=== PATIENT | male | born 1970 | race Caucasian/White ===

== ENCOUNTER 2022-08-22 20:32 | Emergency (ER) | payer MEDICAID, OTHER ==
[~2022-08-22] VITALS: Ht 190.5 cm; Wt 90.7 kg
--- NOTE | 2022-08-22 20:32 | NUR ---
Patient examine by physician upon arrival.
[2022-08-22] MEDS ORDERED: MIDAZOLAM HCL 5 MG/ML VIAL ONE (20:41)
[2022-08-22] MEDS ORDERED: MIDAZOLAM HCL 2 MG/2 ML VIAL IM ONE (20:45)
--- NOTE | 2022-08-22 20:45 | NUR ---
PT BIBA TO RM 2B EXPERIENCING ACTIVE SEIZURES. PT PLACED IN RM 2B, PLACED ON MONITOR.
[2022-08-22] MEDS ORDERED: LORAZEPAM 2 MG/1 ML VIAL ONE (21:06)
[2022-08-22] MEDS ORDERED: LORAZEPAM 2 MG/1 ML VIAL IM ONE (21:15)
[2022-08-22 21:24] LABS: HEMATOCRIT 40.6 % (36.7-47.1); MEAN CORPUSCULAR HEMOGLOBIN 30.5 uug (23.8-33.4); PLATELET COUNT (AUTO) 272 K/uL (152-348)
--- NOTE | 2022-08-22 21:27 | NUR ---
SBP 141/95 HR 95 100% saturation pt. now with less tremors remains diaphoretic. Will continue to monitor.
[2022-08-22 21:37] LABS: CREATININE 0.9 mg/dL (0.6-1.3); POTASSIUM 4.2 mmol/L (3.5-5.1)
[2022-08-22 21:43] LABS: BILIRUBIN,TOTAL 1.6 mg/dL (0.2-1.0); TOTAL PROTEIN, SERUM 7.3 g/dL (6.4-8.2)
[2022-08-22] MEDS ORDERED: CARB100I (22:17)
[2022-08-22] MEDS ORDERED: LEVE1000 (22:18)
--- NOTE | 2022-08-22 22:49 | NUR ---
HR of 87, RR 18, 115/56
--- NOTE | 2022-08-23 00:26 | NUR ---
Call [facility] to arrange transportation back to [facility] [id number] [facility]. and ETA of 40-50 min. received.
--- NOTE | 2022-08-23 01:17 | NUR ---
[place] professional in to pick-up pt. HR of 82, rr 17, sbp of 115/75. report given to Henry. [place] Patient left room [id number]. no c/of pain.
[2022-08-23 01:25] VITALS: O2SAT 100
== END 2022-08-23 01:33 | disposition home or self-care (01) ==
LOC: ER 20:32
DX: G25.9 Extrapyramidal and movement disorder, unspecified (principal); Z88.8 Allergy status to other drugs, medicaments and biological substances; Z79.899 Other long term (current) drug therapy
CPT/HCPCS: 99284; 80053; 82550; 85025; 36415; 96372 ×2; J2060; J2250; A4663

== ENCOUNTER 2022-09-20 14:53 | Emergency (ER) | payer MEDICAID ==
[~2022-09-20] VITALS: Ht 190.5 cm; Wt 90.7 kg
[~2022-09-20 14:53] MED LIST: CARB100I; LEVE1000
[2022-09-20] MEDS ORDERED: LEVE100023 PO (15:17)
[2022-09-20] MEDS ORDERED: ALPR0.255 PO (15:17)
[2022-09-20] MEDS ORDERED: IV NORMAL SALINE 1000 ML BAG IV ONE (15:30)
[2022-09-20 15:45] LABS: BASOPHILS % (AUTO) 0.4 % (0.0-2.0); EOSINOPHILS # (AUTO) 0.2 K/uL (0.0-0.7); EOSINOPHILS % (AUTO) 3.1 % (0.0-7.0); HEMATOCRIT 36.8 % (36.7-47.1); HEMOGLOBIN 12.3 g/dL (12.5-16.3); LYMPHOCYTES # (AUTO) 0.8 K/uL (0.8-4.8); LYMPHOCYTES % (AUTO) 13.1 % (20.5-51.5); MEAN CORPUSCULAR HEMOGLOBIN 30.4 uug (23.8-33.4); MEAN CORPUSCULAR HGB CONC 34 g/dL (32.5-36.3); MEAN CORPUSCULAR VOLUME 90.9 fL (73.0-96.2); MONOCYTES # (AUTO) 0.5 K/uL (0.1-1.30); MONOCYTES % (AUTO) 8.5 % (0.0-11.0); NEUTROPHILS # (AUTO) 4.7 K/uL (1.8-8.9); NEUTROPHILS % (AUTO) 74.9 % (38.5-71.5); PLATELET COUNT (AUTO) 221 K/uL (152-348); RED BLOOD CELL COUNT(AUTO) 4.05 MIL/uL (4.06-5.63); RED CELL DISTRIBUTION WIDTH 14.5 % (12.1-16.2); WHITE BLOOD COUNT (AUTO) 6.3 K/uL (3.6-10.2)
[2022-09-20 15:59] LABS: DIFFERENTIAL COMMENT 1
[2022-09-20 16:02] LABS: CALCIUM 8.6 mg/dL (8.5-10.1); CARBON DIOXIDE 29 mmol/L (21-32); CHLORIDE 104 mmol/L (98-107); CREATININE 0.6 mg/dL (0.6-1.3); GLUCOSE 96 mg/dL (74-106); POTASSIUM 3.6 mmol/L (3.5-5.1); SODIUM SERUM 141 mmol/L (136-145); UREA NITROGEN, BLOOD 13 mg/dL (7-18)
[2022-09-20 16:16] LABS: ALANINE AMINOTRANSFERASE 9 U/L (16-63); ALBUMIN 3.5 g/dL (3.4-5.0); ALKALINE PHOSPHATASE 121 U/L (50-136); ASPARTATE AMINOTRANSFERASE 20 U/L (15-37); BILIRUBIN,DIRECT 0.2 mg/dL (0.0-0.2); BILIRUBIN,TOTAL 1.1 mg/dL (0.2-1.0); NT-PRO BNP 65 pg/mL (0-125); TOTAL PROTEIN, SERUM 6.6 g/dL (6.4-8.2)
[2022-09-20] MEDS ORDERED: LORAZEPAM 2 MG/1 ML VIAL IV ONE (19:45)
[2022-09-20] MEDS ORDERED: LORAZEPAM 2 MG/1 ML VIAL ONE (19:48)
[2022-09-20 20:47] VITALS: BP 141/68; TEMP 98; O2SAT 98
== END 2022-09-20 20:47 ==
LOC: ER 14:53
DX: G24.9 Dystonia, unspecified (principal); G20 Parkinson's disease; Z90.49 Acquired absence of other specified parts of digestive tract; Z90.89 Acquired absence of other organs; Z88.8 Allergy status to other drugs, medicaments and biological substances; Z79.899 Other long term (current) drug therapy
CPT/HCPCS: 99285; 96374; 96361; 80076; 80048; 83880; 85025; 85730; 84484; 36415; 93005; J2060; J7040; A4663

== ENCOUNTER 2022-10-19 14:08 | Emergency (ER) | payer MEDICAID, OTHER ==
[~2022-10-19] VITALS: Ht 190.5 cm; Wt 90.7 kg
[~2022-10-19 14:08] MED LIST changes: +ALPR0.255 PO; +LEVE100023 PO
[2022-10-19] MEDS ORDERED: SENN-18 PO (14:40)
[2022-10-19] MEDS ORDERED: IBUP-1955 PO (14:40)
[2022-10-19] MEDS ORDERED: DIAZ10TA4 PO (14:40)
[2022-10-19] MEDS ORDERED: CYCL5TAB PO (14:40)
[2022-10-19] MEDS ORDERED: BENZ2TAB7 PO (14:40)
[2022-10-19] MEDS ORDERED: POLY250017 PO (14:40)
[2022-10-19] MEDS ORDERED: LORAZEPAM 2 MG/1 ML VIAL IM ONE ×3 (14:45→22:00)
[2022-10-19] MEDS ORDERED: LORAZEPAM 2 MG/1 ML VIAL ONE ×3 (14:56→21:47)
[2022-10-19] MEDS ORDERED: MIDAZOLAM HCL 5 MG/ML VIAL ONE (19:22)
[2022-10-19] MEDS ORDERED: MIDAZOLAM HCL 2 MG/2 ML VIAL IM ONE (19:30)
[2022-10-19 22:49] VITALS: BP 137/90; O2SAT 97
== END 2022-10-19 22:49 | disposition home or self-care (01) ==
LOC: ER 14:08
DX: G24.9 Dystonia, unspecified (principal); G20 Parkinson's disease; Z90.49 Acquired absence of other specified parts of digestive tract; Z90.89 Acquired absence of other organs; Z79.1 Long term (current) use of non-steroidal anti-inflammatories (NSAID); Z79.899 Other long term (current) drug therapy
CPT/HCPCS: 99284; 96372 ×4; J2060 ×3; J2250; A4663